=== PATIENT | male | born 1950 | race Caucasian/White ===

== ENCOUNTER → 2024-06-19 09:58 | Outpatient (REF) | payer BC, SELFPAY ==
[2024-06-19 11:21] LABS: % Eosinophils 3.5 % (0-6); % Immature Granulocytes 0.3 % (0-0.5); % Lymphocytes 18.3 % (20.5-51.1); % Neutrophils 63.9 % (42.2-75.2); Absolute Basophils 0.1 10^3/uL (0-0.2); Absolute Eosinophils 0.2 10^3/uL (0-0.7); Absolute Lymphocytes 1.1 10^3/uL (1.2-3.4); Absolute Monocytes 0.8 10^3/uL (0.1-0.6); Absolute Neutrophils 3.8 10^3/uL (1.4-6.5); Hematocrit 43.6 % (39.0-52.0); Hemoglobin 14.4 g/dL (13.0-18.0); Mean Corpuscular Hgb 28.7 pg (27.0-31.0); Mean Platelet Volume 9.7 fL (7.4-10.4); Nucleated Red Blood Cells % 0 % (-); Platelet Count 338 10^3/uL (130-400); Red Blood Cell Count 5.01 10^6/uL (4.70-6.10); Red Cell Dist. Width 14.9 % (11.5-14.5)
[2024-06-19 11:42] LABS: ALT (SGPT) 26 U/L (0-50); AST (SGOT) 27 U/L (17-59); Albumin 4.3 g/dl (3.5-5.0); Alkaline Phosphatase 80 U/L (38-126); Blood Urea Nitrogen 16 mg/dl (9-20); Calcium 9.3 mg/dl (8.4-10.2); Carbon Dioxide 26 mmol/L (22-30); Chloride 101 mmol/L (98-107); Glucose 87 mg/dl (70-99); HDL Cholesterol 58 mg/dl; LDL Cholesterol, Calculated 118 mg/dl; Sodium 140 mmol/L (135-145); Total Bilirubin 0.5 mg/dl (0.2-1.3); Total Cholesterol 192 mg/dl (50-199); Total Protein 7.3 g/dl (6.3-8.2); Triglyceride 82 mg/dl (10-149); Very Low Density Lipoprotein 16 mg/dl (0-30); eGFR > 60.00
[2024-06-19 12:11] LABS: PSA, Total - Diagnostic 4.83 ng/ml (0.0-4.0)
== END ==
LOC: REG 09:58
PROVIDERS: ATTENDING PHYSICIAN Family Medicine
DX: Z00.00 Encounter for general adult medical examination without abnormal findings (principal); E78.00 Pure hypercholesterolemia, unspecified; I45.10 Unspecified right bundle-branch block; Z13.29 Encounter for screening for other suspected endocrine disorder; Z12.5 Encounter for screening for malignant neoplasm of prostate
CPT/HCPCS: 36415; 80053; 80061; 84153; 84443; 85025

== ENCOUNTER → 2024-09-02 15:05 | Outpatient (REF) | payer BC, SELFPAY ==
[2024-09-02 16:48] LABS: PSA, Total - Diagnostic 4.84 ng/ml (0.0-4.0)
== END ==
LOC: REG 15:05
PROVIDERS: ATTENDING PHYSICIAN Specialist; FAMILY PHYSICIAN Family Medicine
DX: R97.20 Elevated prostate specific antigen [PSA] (principal)
CPT/HCPCS: 36415; 84153

== ENCOUNTER 2024-09-14 14:00 | Emergency (ER) | payer BC, SELFPAY ==
[2024-09-14 14:05] VITALS: BP 166/75
[2024-09-14 15:14] LABS: Urine Albumin Negative (Neg - Trace); Urine Bilirubin Negative (Negative); Urine Character Clear (Clear); Urine Color Yellow; Urine Glucose Negative (Negative); Urine Ketone Negative (Negative); Urine Leukocyte Negative (Negative); Urine Nitrite Negative (Negative); Urine Occult Blood Negative (Negative); Urine Specific Gravity 1.025 (<1.030); Urine Urobilinogen Negative (Neg - 1+)
--- NOTE | 2024-09-14 15:39 | ED.GENMED ---
Addendum entered and electronically signed by Jean-Pierre Partida DO 09/14/24 17:29:
Update, patient appears comfortable, reviewed imaging and labs with him sounds like radiculopathy, cannot get NSAIDs being on blood thinner, was doing core exercises he stopped after his fall couple weeks ago started again yesterday perhaps he
tweaked his back doing that
Original Note:
History of Present Illness
General
Chief Complaint: Back Pain
Source: patient
Exam Limitations: none
Time Seen by Provider: 09/14/24 15:16
Nursing documentation reviewed up to this point in time: agreed with
History of Present Illness
History of Present Illness:
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
injured his right lower ribs had some bruising he is recovering from that, he had some Fioricet which she took today got some relief this is from a prior migraine also took 2 Motrin no head strike, when he fell few weeks he was walking his dog fell
onto a log
Past History
Past History
ED Past Medical History: Other (Colonic polyps and Meng's esophagus) and Other (Pulmonary emboli)
ED Past Surgical History: Appendectomy and Tonsilectomy
Social History
Tobacco: Non-smoker
Alcohol: None
Drug: None
Personal:
Living: with family
Employment: Employed
Family History
Family History: Negative Diabetes, Hypertension, Early CAD, Asthma or Cancer
Review of Systems
Review of Systems
All Other Systems: Not applicable
Constitutional: Denies fever or fatigue
EENT: Reports no symptoms
Respiratory: Denies cough or trouble breathing
Cardiac: Reports no symptoms
ABD/GI: Reports no symptoms
: Reports flank pain; Denies bleeding
Musculoskeletal: Reports back pain
Hematologic/Lymphatic: Reports no symptoms
Psychiatric: Reports no symptoms
Phy Exam
Physical Exam
Physical Exam:
Physical Exam
General: no apparent distress, not acutely ill
Neck: No tongue bite no posterior neck
Heart: s1/s2 regular rate and rhythm, no murmur. equal radial pulses.
Lungs: no acute respiratory distress. clear bilaterally old appearing bruising on the right lower costal margin no crepitance
Abdomen: Soft, minimal tenderness in the left low back
Neuro: alert and oriented. no focal neurological deficits
Skin: no rash
Psychiatric: well kept. interactive and cooperative
Extremities: no edema. no calf tenderness.
Course
Orders/Labs/Results
Orders:
Orders
09/14/24 15:00
Urinalysis Reflex To Culture Urgent
Date Specimen was Collected: 09/14/24
Time Specimen was Collected: 15:02
09/14/24 15:28
Oxycodone/Acetaminophen [Percocet 5/325] 1 tablet PO NOW STA
09/14/24 15:29
CT Abd/pel Without Iv Or Oral Urgent
Comment:
Reason For Exam: left flakn edwin n
Ribs, Right 3 View W/PA Chest [CR Ribs-right 3 Vw W/pa Chest*] Urgent
Comment:
Reason For Exam: fall
Vital Signs
Initial and Last Documented VS:
Initial Vital Signs
Temp Pulse Resp BP Pulse Ox
98.7 F 85 16 166/75 98
09/14/24 14:05 09/14/24 14:05 09/14/24 14:05 09/14/24 14:05 09/14/24 14:05
Last Documented Vital Signs
Temp Pulse Resp BP Pulse Ox
98.7 F 85 16 166/75 98
09/14/24 14:05 09/14/24 14:05 09/14/24 14:05 09/14/24 14:05 09/14/24 14:05
MDM/Problems Addressed
Differential Diagnosis Includes:
Muscle strain UTI, traumatic injury, strain strain, delayed injury to the right rib
MDM/Problems Addressed:
Low back pain, fall few weeks ago
*Radiology
Radiology exam reviewed: radiology read reviewed
*Pulse Oximetry
Patient hypoxic: no
*Critical Care Note
Total Time (30-74mins, 75-104mins- exclusive of procedures): Not Applicable
Update Note
Update Note:
Update will check rib series, CT scan look for any renal stone, ureteral stone, also retroperitoneal bleed
[address] report noted x-ray noted formal report of the x-ray pending urinalysis noted no red cells
ED Attending Note
-
Portions of this chart may have been created with voice recognition software.� Occasional wrong word or��sound alike� substitutions may have occurred due to the inherent limitations of voice recognition software.
Discharge Plan
Departure
Patient Disposition: Home (Routine Discharge)
Date of Disposition: 09/14/24
Time of Disposition: 17:00
Patient with high blood pressure during this ER visit?: No
Condition: Good
Covid-19: Not Applicable
Discharge Problem:
Back pain
Instructions: Low Back Pain (DC), Radiculopathy (DC)
Prescriptions:
New
oxycodone 5 mg tablet, oral only
5 mg PO Q8H PRN (Reason: Pain) Qty: 10 0RF
No Action
fluticasone propionate 1 SPRAY spray,suspension
2 spray intranasal DAILY
mpascgxlhg-lerzbyz-xqmsgjus 1 TAB tablet
1 tab PO Q4HPRN MDD 6 tabs in 24H PRN (Reason: migraine)
dexlansoprazole [Dexilant] 30 MG capsule,biphase delayed releas
60 mg PO DAILY
apixaban [Eliquis] 5 MG tablet
5 mg PO BID 30 Days Qty: 60 0RF
hydrocodone-acetaminophen [[place]] 1 EACH tablet
1 ea PO Q4HPRN PRN (Reason: pain) Qty: 8 0RF
Referrals:
Ruben Jefferson DO [Family Provider] - Next open appointment
Interventions
Interventions:
*Risk Screen - Suicide Last Done: 09/14/24 14:05
*General Assessment Last Done: 09/14/24 14:05
*Neglect/Abuse Screening Last Done: 09/14/24 14:05
ED- Fall Risk Assessment Last Done: 09/14/24 15:09
*ED COVID-19 Vaccine History Last Done: 09/14/24 14:05
ED-Musculoskeletal Assessment Last Done: 09/14/24 15:09
Discharge Date and Time
Print Language: SPANISH
[2024-09-14] MEDS: PERCOCET 5/325 1 TABLET PO (15:45)
[2024-09-14 17:20] VITALS: BP 162/74
[2024-09-14] MEDS: DILAUDID 1 MG IM (17:42)
== END 2024-09-14 17:20 | disposition home or self-care (01) ==
LOC: EMR 14:00
PROVIDERS: Physician Assistant; EMERGENCY PHYSICIAN Emergency Medicine; FAMILY PHYSICIAN Family Medicine
DX: M54.50 Low back pain, unspecified (principal); Z87.442 Personal history of urinary calculi; Z90.49 Acquired absence of other specified parts of digestive tract; Z86.711 Personal history of pulmonary embolism
CPT/HCPCS: 96372; 99284; 71101; 74176; 81003

== ENCOUNTER → 2024-10-01 13:23 | Outpatient (REF) | payer BC, SELFPAY | LOC: REG 13:23 | PROVIDERS: ATTENDING PHYSICIAN Nurse Practitioner Family | DX: M79.652 Pain in left thigh (principal) | CPT/HCPCS: 73502; 73552 ==

== ENCOUNTER → 2024-10-16 11:28 | Outpatient (REF) | payer BC, SELFPAY ==
[2024-10-16 16:05] LABS: PSA, Total - Diagnostic 4.33 ng/ml (0.0-4.0)
== END ==
LOC: REG 11:28
PROVIDERS: ATTENDING PHYSICIAN Specialist
DX: R97.20 Elevated prostate specific antigen [PSA] (principal)
CPT/HCPCS: 36415; 84153

== ENCOUNTER → 2025-04-14 17:35 | Outpatient (REF) | payer BC, SELFPAY ==
[2025-04-14 19:04] LABS: Urine Character Bloody (Clear)
[2025-04-14 19:24] LABS: Urine Red Blood Cell >100 /HPF (0-2); Urine Squamous Cell 0-2 /LPF (Few)
== END ==
LOC: REG 17:35
PROVIDERS: ATTENDING PHYSICIAN Specialist; FAMILY PHYSICIAN Family Medicine
DX: N39.0 Urinary tract infection, site not specified (principal)
CPT/HCPCS: 81003; 81015; 87086

== ENCOUNTER → 2025-06-24 10:06 | Outpatient (REF) | payer OTHER, SELFPAY ==
[2025-06-24 11:08] LABS: Hematocrit 42.3 % (39.0-52.0); Hemoglobin 13.7 g/dL (13.0-18.0); Mean Corp Hgb Conc. 32.4 g/dL (33.0-37.0); Mean Corpuscular Volume 86.2 fL (80.0-94.0); Nucleated Red Blood Cells % 0 % (-); Platelet Count 343 10^3/uL (130-400); Red Cell Dist. Width 14.5 % (11.5-14.5)
[2025-06-24 11:30] LABS: ALT (SGPT) 21 U/L (0-50); AST (SGOT) 24 U/L (17-59); Albumin 4.3 g/dl (3.5-5.0); Alkaline Phosphatase 69 U/L (38-126); Blood Urea Nitrogen 15 mg/dl (9-20); Calcium 9.0 mg/dl (8.4-10.2); Carbon Dioxide 29 mmol/L (22-30); Chloride 105 mmol/L (98-107); Glucose 94 mg/dl (70-99); HDL Cholesterol 61 mg/dl; LDL Cholesterol, Calculated 136 mg/dl; Potassium 4.8 mmol/L (3.5-5.1); Sodium 139 mmol/L (135-145); Total Protein 7.4 g/dl (6.3-8.2); Very Low Density Lipoprotein 17 mg/dl (0-30); eGFR > 60.00
[2025-06-24 11:55] LABS: PSA, Total - Diagnostic 4.53 ng/ml (0.0-4.0); TSH 2.77 uIU/ml (0.47-4.68)
[2025-06-26 10:50] LABS: Lyme Antibody Screen, EIA Negative (Negative)
== END ==
LOC: REG 10:06
PROVIDERS: ATTENDING PHYSICIAN Specialist; FAMILY PHYSICIAN Family Medicine
DX: R97.20 Elevated prostate specific antigen [PSA] (principal); Z00.00 Encounter for general adult medical examination without abnormal findings; E78.00 Pure hypercholesterolemia, unspecified; W57.XXXA Bitten or stung by nonvenomous insect and other nonvenomous arthropods, initial encounter
CPT/HCPCS: 36415; 80053; 80061; 84153; 84443; 85025; 86618